=== PATIENT | male | born 1935 | race Caucasian/White ===

== ENCOUNTER 2016-10-24 17:22 | Emergency (ER) | payer MEDICARE, MEDICAID ==
[~2016-10-24] VITALS: Ht 162.6 cm; Wt 61.7 kg
--- NOTE | 2016-10-24 17:55 | NUR ---
Dr Hernandez at the bedside for eval and exam.
--- NOTE | 2016-10-24 17:58 | NUR ---
Paged Dr Up(nephralogist) per MD order. Message left, awaiting call back.
--- NOTE | 2016-10-24 18:24 | NUR ---
CONTINUE OBSERVING FOR ACUTE BLEEDING FROM AV SHUNT, NONE NOTED SO FAR, DRESSING IN PLACE. RADIAL PULSES WNL. ABLE TO PALPATE BRUIT ON RAISSA.
--- NOTE | 2016-10-24 18:55 | NUR ---
Changed dressing on AV Shunt, no bleeding noted, pressure drsg and surgi-seal applied. pt's daughter at bedside. Left massage for Dr Newton for Dr Damon.
--- NOTE | 2016-10-24 19:01 | NUR ---
Patient discharged to home in stable conditon. Written and verbal after care instructions given. Patient verbalizes understanding of instructions. pt left er accompained by family.
[2016-10-24 19:02] VITALS: BP 141/66
== END 2016-10-24 19:02 | disposition home or self-care (01) ==
LOC: ER 17:23
DX: T82.838A Hemorrhage due to vascular prosthetic devices, implants and grafts, initial encounter (principal); I12.0 Hypertensive chronic kidney disease with stage 5 chronic kidney disease or end stage renal disease; N18.6 End stage renal disease; I25.10 Atherosclerotic heart disease of native coronary artery without angina pectoris; Z99.2 Dependence on renal dialysis
CPT/HCPCS: A4663